=== PATIENT | female | born 1995 | race Hispanic/Latino ===

== ENCOUNTER 2017-06-14 16:01 | Outpatient (CLI) | payer BC ==
--- NOTE | 2017-06-17 08:03 | Magnetic Resonance Report ---
MR LOWER EXTREMITY NON-JOINT RIGHT WITH AND WITHOUT CONTRAST History: Atherosclerosis. Technique: Multisequence, multiplanar MRI with 4 and after 15 cc of Multihance intravenously. Findings: No comparison. There is normal bone marrow signal within the tibia and fibula. No evidence for fracture, bone lesion or bony destruction. The muscular and subcutaneous soft tissues are within normal limits. No mass, inflammation or fluid collection. Although dedicated MRA was not performed, the arterial and venous structures in the left lower extremity appear patent and without significant stenosis. There is no abnormal enhancement. Impression: Unremarkable exam.
== END 2017-06-14 16:02 | disposition home or self-care (01) ==
LOC: MRI 16:01
PROVIDERS: ATTEND Radiology Diagnostic Radiology
DX: I70.213 Atherosclerosis of native arteries of extremities with intermittent claudication, bilateral legs (principal)
CPT/HCPCS: 73720; A9577